=== PATIENT | female | born 1940 | race Caucasian/White ===

== ENCOUNTER 2016-11-17 12:52 | Day surgery (SDC) | payer MEDICARE ==
[~2016-11-17] VITALS: Ht 160 cm; Wt 79.4 kg
[~2016-11-17 12:52] MED LIST: ASPI-973 PO; ATEN25TA PO; CALC-696 PO; CHOL40003 PO; CYAN1TAB19 PO; CYCL1DRO OP; DOXA4TAB2 PO; LORA1TAB PO; PRAV40TA PO; UBID50TA3 PO; fentaNYL-PF 50 mCg/mL 2 mL Inj IVPUSH PRN; fish oil
[2016-11-17 13:26] VITALS: BP 145/76; PULSE 69; RESP 16; O2SAT 97
[2016-11-17] MEDS ORDERED: TRIM100T PO (13:36)
[2016-11-17] MEDS ORDERED: OSPE60TA2 PO (13:36)
[2016-11-17] MEDS ORDERED: 0.9% Sodium Chloride 1,000 ML ONE (13:45)
[2016-11-17 14:46] VITALS: BP 133/62; PULSE 79; RESP 16; O2SAT 94
[2016-11-17 14:57] VITALS: BP 118/64; PULSE 82; RESP 16; O2SAT 94
[2016-11-17 15:05] VITALS: BP 134/70; PULSE 73; RESP 16; O2SAT 95
--- NOTE | 2016-11-17 16:20 | ENDO ---
[address] [address] ENDOSCOPY PROCEDURE PATIENT: JULI ALVARADO : 1940 MR#: [id number] ADMIT: 11/17/2016 JOB ID: [id number] PREPROCEDURE DIAGNOSIS: Dysphagia. POSTPROCEDURE DIAGNOSIS: Dysphagia. PROCEDURE PERFORMED: Upper endoscopy with biopsies. MEDICATIONS: Versed 7 mg, fentanyl 125 mcg. INSTRUMENT: Upper endoscope Olympus GIF H 180 J. SURGEON: Shawanda Wheeler MD. FINDINGS: 1. Normal esophagus and squamocolumnar junction, without esophagitis, stricture, mass, or hiatal hernia. 2. Mild streaks of inflammation in the body of the antrum, biopsied. 3. Mucosal fold in the antrum, biopsied. 4. Otherwise normal endoscopy. HISTORY OF PRESENT ILLNESS: This is a 75-year-old woman who had one episode of severe dysphagia and saw her primary care provider as a result. She had two or three additional episodes but they were much milder. She was seen in my clinic on November 03. Upper endoscopy was indicated to evaluate the cause. DESCRIPTION OF PROCEDURE: The patient was brought to the procedural suite and placed in left lateral decubitus position. Moderate sedation was induced. A bite block was placed. The endoscope was advanced into the proximal esophagus. The esophagus was carefully inspected and was entirely normal, without any strictures, masses, esophagitis, or hiatal hernia. She had a normal squamocolumnar junction and this was located at 40 cm, also the same location of the diaphragmatic pinch. The scope was advanced into the stomach. She had a Hill grade 1 flap valve. There was a small streak of inflammation in the anterior body of the stomach which was biopsied. There was a small nonmobile mucosal fold near the pylorus which did not change with the peristalsis of the stomach; there were no mucosal changes at that location and therefore it was biopsied. The endoscope was advanced into the duodenum, which was normal to the visualized 3rd portion. There were no other abnormalities. The endoscope was removed. The patient tolerated it well. ESTIMATED BLOOD LOSS: None. COMPLICATIONS: None. SPECIMENS: 1. Gastric body biopsy. 2. Antrum biopsy.
--- NOTE | 2016-11-21 10:39 | PATH ---
SURGICAL PATHOLOGY Attending Physician:Shawanda Wheeler MD CASE STATUS: Signed Out PATIENT NAME: JULI ALVARADO PID: [id number] : 1940 DATE COLLECTED:11/17/2016 00:00 SPECIMEN: 1: Gastric, Biopsy 2: Stomach, Antrum, Biopsy CLINICAL HISTORY: A: GASTRIC BODY BIOPSY B: ANTRUM BIOPSY FINAL DIAGNOSIS: 1.GASTRIC BODY BIOPSY: GASTRIC CORPUS WITH MILD CHRONIC GASTRITIS. Negative for Helicobacter organisms. Negative for intestinal metaplasia. No evidence of dysplasia or malignancy. 2.GASTRIC ANTRUM BIOPSY: GASTRIC ANTRUM WITH CHRONIC GASTRITIS AND INTESTINAL METAPLSIA. Negative for Helicobacter organisms. No evidence of dysplasia or malignancy. ICD10 code K29.70 GROSS DESCRIPTION: The specimen is received in two formalin filled containers labeled with the patient's name. 1). The specimen is sublabeled "gastric body" and consists of a 0.5 x 0.3 x 0.2 CM portion of tissue which is entirely submitted in cassette 1A. 2). The specimen is sublabeled "antrum" and consists of 2 portions of tissue which aggregate to 0.3 x 0.3 x 0.2 CM. The specimen is entirely submitted in cassette 2A. 11/18/2016 DAC MICRO DESCRIPTION: See diagnosis. ICD-9 CODES: CPT CODES: 1: 47836 2: 78284 Electronically Signed Out Irvin Hsu MD [facility] Pathology [facility], [place] [address] Technical component performed at [facility], [address] [place] [address] Ave[address], [place], [address]
[2017-02-16] MEDS ORDERED: CRAN500T2 PO (13:03)
[2017-02-16] MEDS ORDERED: ATEN25TA PO (13:03)
[2017-02-16] MEDS ORDERED: OSPE60TA2 PO (13:03)
[2017-02-16] MEDS ORDERED: CYCL1DRO OP (13:03)
[2017-02-16] MEDS ORDERED: CHOL40003 PO (13:03)
[2017-02-16] MEDS ORDERED: CALC-78 PO (13:03)
[2017-02-16] MEDS ORDERED: L.AC1CAP6 PO (13:03)
[2017-02-16] MEDS ORDERED: VIT1TABL83 PO (13:03)
[2017-02-16] MEDS ORDERED: FLUT16SP NS (13:03)
[2017-02-16] MEDS ORDERED: LORA1TAB PO (13:03)
[2017-02-16] MEDS ORDERED: PRAV40TA PO (13:03)
== END 2016-11-17 23:59 | disposition home or self-care (01) ==
LOC: END 12:52
PROVIDERS: ATTEND Surgery
DX: R13.14 Dysphagia, pharyngoesophageal phase (principal); K29.50 Unspecified chronic gastritis without bleeding; G47.30 Sleep apnea, unspecified; G25.81 Restless legs syndrome; Z79.82 Long term (current) use of aspirin
CPT/HCPCS: 43239; 99153; G0500; J2250; J7030

== ENCOUNTER 2017-02-20 10:48 | Day surgery (SDC) | payer MEDICARE ==
[~2017-02-20] VITALS: Ht 160 cm; Wt 80.3 kg
--- NOTE | 2017-02-20 07:12 | PCM.HPANE ---
Patient Data Surgeon Admitting Provider: Attending Provider:Aren Bowles MD Primary Care Physician:Yasmine Bedolla Other Provider:ArnoldoocChelle Anesthesia Reason for Visit Right Knee Arthritis Ht/WT & BMI Height (Feet): 5 Height (Inches): 3 Weight (Kilograms): 81.37 Body Mass Index 31.00 Allergies Coded Allergies: amoxicillin (Verified Allergy, Unknown, rash ?- pt cannot recall, 02/16/17) atorvastatin (Unverified Adverse Reaction, Mild, MUSCLE PAIN, 11/17/16) Past Anesthesia History Anesthesia History: Denies:: Abnormal Airway, Anesthesia Reactions, Difficult Intubation, Fam Anesthesia Reaction, Fam Malignant Hypertherm, Malignant Hyperthermia Diabetes History Hx Diabetes?: No MRSA MRSA: No Medications Blood Thinner: Aspirin Hypertension Medication: No Home Meds Incl Beta Cas: Yes (for PVC's only not htn) Reported Medications Cholecalciferol (Vitamin D3) (Vitamin D3)4,000 Unit Capsule4,000 Unit PO DAILY 02/16/17 Cyclosporine (Restasis)1 Each Droperette1 Each OP Q12H 02/16/17 L.acidoph & Paracasei,B.lactis (Probiotic)10 Billion Cell Capsule1 Each PO DAILY 02/16/17 Pravastatin 40 Mg Hkhqmk44 Mg PO DAILY Ref 0 02/16/17 Ospemifene (Osphena)60 Mg Ehcvyp24 Mg PO DAILY 02/16/17 Lorazepam 1 Mg Tablet0.5-1 Mg PO TID PRN For Anxiety Ref 0 02/16/17 Fluticasone Propionate (Fluticasone Propionate Nasal)16 Gm [place].susp2 [place] NS BID #16 GM Ref 0 02/16/17 Cranberry Extract (Cranberry)500 Mg Ndjsbc535 Mg PO DAILY 02/16/17 Calcium Carbonate/Vitamin D3 (Calcium 500 + Vit D Caplet)1 Each Tablet2 Each PO DAILY 02/16/17 Vit B Comp/C/FA/Iron/Vit E (Vitamin B Complex Tablet)1 Each Tablet1 Each PO DAILY 02/16/17 Atenolol 25 Mg Goffxe53 Mg PO DAILY #30 TABLET Ref 0 02/16/17 Discontinued Reported Medications Trimethoprim 100 Mg Firozr106 Mg PO HS Ref 0 11/17/16 Ospemifene (Osphena)60 Mg Evpvxy40 Mg PO DAILY 11/17/16 Cholecalciferol (Vitamin D3) (Vitamin D3)4,000 Unit Capsule4,000 Unit PO DAILY 05/03/16 Cyclosporine (Restasis)1 Each Droperette1 Each OP Q12H PRN dry eyes 05/03/16 Pravastatin 40 Mg Xgedqp11 Mg PO DAILY Ref 0 05/03/16 Calcium Citrate/Vitamin D2 ([place]-Citrate Plus Vitamin D Tab)1 Each Tablet1 Each PO DAILY 05/03/16 Cyanocobalamin/FA/Pyridoxine (B Complex-Folic Acid Tablet)1 Each Tablet1 Each PO DAILY 05/03/16 Atenolol 25 Mg Valcif41 Mg PO BID #30 TABLET Ref 0 05/03/16 Aspirin 81 Mg Cvqibu54 Mg PO DAILY Ref 0 05/03/16 History HEENT History: Positive for:: Cataracts (bilateral) Denies:: Abnormal Airway Difficult Intubation Dysphagia Glaucoma Hearing Problem Sinus Problem TMJ Hx of Heart Problems?: Yes Cardiovascular History: Positive for:: Irregular Heartbeat (palpitations) Denies:: AICD Atrial Fibrillation Chest Pain Heart Murmur Hypertension Pacemaker Peripheral Vascular Valvular Heart Disease (echo 2014- 55-60%) Hx of Respiratory Problem?: Yes Respiratory History: Positive for:: Tuberculosis (remote hx of post TB skin test, clear xrays post ) Use of C-PAP Machine (uses snore mouth guard) Denies:: Asthma COPD Cough Hemoptysis Oxygen Administration Pneumonia Hx Neurologic Problems?: No Neurological History: Denies:: CVA Dementia Dizziness (remote hx of prior vertigo ) Headaches Multiple Sclerosis Parkinson's Disease Seizures TIA Hx of GI Problems?: Yes Gastrointestinal History: Positive for:: Gall Bladder Disease (removed) Gastroesphageal Reflux (recent egd- for odynophagia takes OTC tums/honey as needed) Heartburn (occasional) Denies:: Cirrhosis Diverticulitis Hiatal Hernia Liver Disease Rectal Bleeding Hx of Problems?: Yes Genitourinary History: Positive for:: Urinary Tract Infection (frequent- on osphena, cranberry supplement- recent UA no UTI now) Female Hx: Denies:: Currently (hysterectomy) Problems with Breasts? Skin History: Denies:: History Skin Disorders? Pressure Ulcers Hx Musculoskeletal Problems?: No Musculoskeletal History: Positive for:: Back Injury (hx of herniated disc) Joint Replacement (bilat hips, left knee) Musculoskeletal Trauma (right knee current admission problem) Osteoarthritis Denies:: Fibromyalgia Myasthenia Gravis Systemic Lupus Hx of Psycho/Social Problems?: No Psycho Social History: Positive for:: Anxiety Denies:: Hx Depression Hx Surgeries?: Yes (BILAP HIP REP, L PARTIAL KNEE, TONSIL, LAP MAXIME, HYSTO, CATARACTS) Hx Any Other Health Problems?: Yes Other History: Positive for:: Hospitalization (ONE NIGHT FOR PAIN 5 YEARS AGO FOR A GALL STONE) Denies:: Cancer Thyroid Disease History Blood Transfusions: Denies:: Blood Transfuse Reaction Blood Transfusions Hx Diabetes: No Hx Alcohol Use: YesAlcoholic Drinks Per Day: 3 drinks weeklyHx Substance Use: No Smoking Status: Never Smoker Have You Smoked inLast 12 mo: No Stop/Bang S-Snoring: Do You Snore Loudly: No T-Tired: feel tired, fatigued: No O-Obsered: Observed not breath: No P-Blood Pressure: treated: Yes B- Body Mass Index > 35 kg/m2: No A- Age over 50: Yes N- Neck Large Circumference: No G- Gender Male: No DANNY Total Score: 2 DANNY Risk Assessment: Low Risk, <3 Yes Risk Assessment Category Category 1A: Patient has history of documented sleep apnea, and HAS NOT received any narcotic, sedative or anesthesia administration during this stay. Category 1B: Patient has history of documented sleep apnea, and HAS received any narcotic , sedative or anesthesia administration during this stay Category 2: Patient has SUSPECTED Obstructive Sleep Apnea, and HAS received any narcotic , sedative or anesthesia administration during this stay. Category 3: Patient has SUSPECTED Obstructive Sleep Apnea and HAS NOT received narcotic, sedative or anesthesia administration during this stay. Category 4: Outpatient in Procedural Areas with known sleep apnea or who screen positive for High Risk via the STOP/BANG questionnaire. Exam Exam General Appearance: Alert, Oriented X3, Cooperative, No Acute Distress HEENT/AIRWAY: MP 2 Lungs: Normal Air Movement Heart: Exam Unremarkable Plan Impression Patient chart reviewed, patient interviewed and anesthestic plan with risks, benefits, and alternatives discussed, and informed consent obtained. ASA Physical Status: ASA2 Mod Systemic Disease Anesthetic Plan: GA Bene/Risks/Altern/Consents: Yes HP Complete Prior to Induction: Yes Polo Osman MD Feb 20, 2017 07:12
[~2017-02-20 10:48] MED LIST changes: -ASPI-973 PO; +Bupivacaine Liposome 1.3% 20 mL Inj INFILTRATE SCH; -CALC-696 PO; +CALC-78 PO; +CRAN500T2 PO; -CYAN1TAB19 PO; -DOXA4TAB2 PO; +FLUT16SP NS; +L.AC1CAP6 PO; +Lactated Ringer's 1,000 ML IV ONE; +OSPE60TA2 PO; +Tranexamic Acid 100 mg/mL 10 mL Inj IV ONE; -UBID50TA3 PO; +VIT1TABL83 PO; +Vancomycin Inj 1,250 MG in 0.9% Sodium Chloride 250 ML IV ONE; -fentaNYL-PF 50 mCg/mL 2 mL Inj IVPUSH PRN; -fish oil
[2017-02-20] MEDS ORDERED: Dexamethasone 4 mg/mL Inj ONE (10:49)
[2017-02-20] MEDS ORDERED: fentaNYL-PF 50 mCg/mL 2 mL Inj ONE (10:49)
[2017-02-20] MEDS ORDERED: Ondansetron 2 mg/mL 2 mL Inj ONE (10:49)
[2017-02-20] MEDS ORDERED: Propofol 10,000 mCg/mL 20 mL Inj ONE (10:49)
[2017-02-20] MEDS ORDERED: CeFAZolin Inj 2 gm / 50mL D5W IV ONE (11:24)
[2017-02-20] MEDS ORDERED: Lactated Ringer's 1,000 ML IV ONE (11:53)
[2017-02-20 11:56] VITALS: BP 131/61; PULSE 70; RESP 14; O2SAT 95
[2017-02-20] MEDS ORDERED: Tranexamic Acid 100 mg/mL 10 mL Inj ONE (13:49)
[2017-02-20] MEDS: 0.9% Sodium Chloride 100 ML ONE ×2 (14:16→14:50)
[2017-02-20] MEDS: CeFAZolin Inj 2 GM in IV Premix 1 EACH IV ONE ×2 (14:16→14:35)
[2017-02-20] MEDS ORDERED: Lactated Ringer's 1,000 ML IV SCH (14:48)
[2017-02-20] MEDS ORDERED: Lactated Ringer's 500 ML IV PRN (14:48)
[2017-02-20] MEDS ORDERED: Ondansetron 2 mg/mL 2 mL Inj IVPUSH PRN (14:50)
[2017-02-20] MEDS ORDERED: fentaNYL-PF 50 mCg/mL 2 mL Inj IVPUSH PRN (14:50)
[2017-02-20] MEDS ORDERED: EPHEDrine Sulfate 50 mg/mL Inj IVPUSH PRN (14:50)
[2017-02-20] MEDS ORDERED: HYDROmorphone 1 mg/mL Inj IVPUSH PRN (14:50)
[2017-02-20] MEDS ORDERED: Phenylephrine 10,000 mCg/mL Inj IVPUSH PRN (14:50)
[2017-02-20] MEDS ORDERED: Albuterol-Ipratropium 3 mL Inhalation Solution NEB PRN (14:50)
[2017-02-20] MEDS ORDERED: Dexamethasone 4 mg/mL Inj IVPUSH PRN (14:50)
[2017-02-20] MEDS ORDERED: MetoCLOpramide 5 mg/mL 2 mL Inj IVPUSH PRN (14:50)
[2017-02-20] MEDS ORDERED: Bupivacaine Liposome 1.3% 20 mL Inj INFILTRATE ONE (15:03)
[2017-02-20] MEDS ORDERED: Bupivacaine-MPF 0.25%/EPI 30 mL Inj INJ ONE (15:03)
[2017-02-20] MEDS ORDERED: Gentamicin 40 mg/mL 2 mL Inj IRRIGATION ONE (15:03)
[2017-02-20 15:57] VITALS: BP 140/64; PULSE 93; RESP 23; O2SAT 100
--- NOTE | 2017-02-20 16:08 | PCM.ANEP1 ---
Post Anesthesia Phase 1 PACU Phase 1 Assessment Vital Signs see anesthesia record Vital Signs Date Time Temp Pulse Resp B/P Pulse Ox O2 Delivery O2 Flow Rate FiO2 02/20/17 11:56 36.7 70 14 131/61 95 Room Air Anesthetic Administered: GA Level of Alertness: Sleepy, easy to arouse WILKINSON's with Equal Strength: Yes Pain: Yes Nausea or Vomiting: No Oxygen Delivery: Nasal Cannula Lungs: Normal Air Movement Dermatome Level: Full Sensation Summary pt with exaggerated response to pain on awakening. Vitals prior to awakening seemed to indicate good pain control. Woke up crying. Given 100mcg of fentanyl. Also given 2mg Midaz. Polo Osman MD Feb 20, 2017 16:08
--- NOTE | 2017-02-20 16:09 | PCM.ANEP2 ---
Post Anesthesia Evaluation ASA/CMS Post Anesthesia VS in Patient's Normal Range?: Yes Resp Stable; Airway Patent?: Yes CV Function & Hydration Stable: Yes Mental Status Recovered?: Yes Pain control Satisfactory?: Yes N/V Control Satisfactory?: Yes Polo Osman MD Feb 20, 2017 16:09
[2017-02-20 16:10] VITALS: BP 143/62; PULSE 84; RESP 19; O2SAT 100
[2017-02-20 16:20] VITALS: BP 134/58; PULSE 70; RESP 15; O2SAT 99
[2017-02-20 16:33] VITALS: BP 143/56; PULSE 69; RESP 16; O2SAT 95
--- NOTE | 2017-02-20 16:34 | DRSVH ---
PROCEDURE: X-RAY RIGHT KNEE, ONE OR TWO VIEWS ([id number]) INDICATIONS: POST RIGHT UNI KNEE TECHNIQUE: 2 view(s) of the knee acquired. COMPARISON: None. FINDINGS: Bones: Patient is status post knee joint medial indira-arthroplasty. Hardware components are in expec anai positions. Visualized bony structures are intact. Soft tissues: Overlying postoperative changes are noted. IMPRESSION: Status post medial right knee hemiarthroplasty. Dictated by: Madison Bobo M.D. on 02/20/2017 at 16:32 Approved by: Madison Bobo M.D. on 02/20/2017 at 16:32
[2017-02-20] MEDS ORDERED: oxyCODONE-Acetamin 5-325 mg Tablet PO ONE (16:46)
[2017-02-20] MEDS ORDERED: hydrOXYzine Pamoate 25 mg Capsule ONE (16:46)
--- NOTE | 2017-02-21 00:51 | OP ---
[address] [address] OPERATIVE REPORT PATIENT: JULI ALVARADO : 1940 MR#: [id number] ADMIT: 02/20/2017 JOB ID: [id number] DATE OF SURGERY: 02/20/2017 PREOPERATIVE DIAGNOSIS(ES): Severe medial compartment osteoarthritis right knee. POSTOPERATIVE DIAGNOSIS(ES): Severe medial compartment osteoarthritis right knee. PROCEDURE: Unicompartmental knee arthroplasty. SURGEON: Aren Bowles MD. JOURNEYMAN LEVEL ACOUSTIC ANALYST: Rizwana Marquez PA-C. Production Floater required due to the complexity of the operation. INDICATIONS: This woman has had severe progressive disability associated with medial compartment osteoarthritis. She has failed conservative treatment and wishes to proceed with unicompartmental knee arthroplasty. She accepts the potential for risks and complications, which includes, but is not limited to infection, thromboembolic, neurovascular events, as well as potential for implant failure and progressive arthritis in unresurfaced compartments. PROCEDURE: The patient was prepped and draped in usual sterile fashion. An anteromedial approach was made. Frontal bossing and a patellar osteophyte removed. The tibial guide was utilized and standard tibial cut was made. The knee was assessed for alignment, soft tissue tension, and a 9 mm spacer block subsequently utilized to make a distal femoral cut. Bone fragment was removed. This femur was subsequently sized to a 4 provisional. Chamfer cuts and drill holes were made. Bone fragments and all meniscal tissue and osteophytes were removed. The tibia was sized to an E, block fixed in appropriate position, rotation. Trial reduction was performed and a 9 mm poly was chosen and drill holes were made. Pressurized lavage was followed by pressurized cementation. Excess cement was removed during the curing process. Final construct was assembled. The final poly snapped securely into place. The patient tolerated the procedure well. There were no complications. Closure over deep Hemovac drain with #2 Quill deep, followed by 2-0 Vicryl, 3-0 and a 4-0 intracuticular stitch. Patient tolerated the procedure well.
== END 2017-02-20 23:59 | disposition home or self-care (01) ==
LOC: SAS 10:48
PROVIDERS: ATTEND Orthopaedic Surgery
DX: M17.11 Unilateral primary osteoarthritis, right knee (principal); E78.00 Pure hypercholesterolemia, unspecified; G47.00 Insomnia, unspecified; G47.33 Obstructive sleep apnea (adult) (pediatric); K21.9 Gastro-esophageal reflux disease without esophagitis; G25.81 Restless legs syndrome; Z87.440 Personal history of urinary (tract) infections; Z79.82 Long term (current) use of aspirin
CPT/HCPCS: 27446; 73560; C1713; C1776; J0690; J1100; J1580; J1885; J2250; J2405; J3010; J7120; Q0177